=== PATIENT | female | born 1970 | race Caucasian/White ===

== ENCOUNTER 2022-02-01 08:23 | Day surgery (SDC) | payer OTHER ==
[2022-02-01] VITALS (9 sets, daily range): BP systolic 126–139; BP diastolic 73–81
[~2022-02-01] VITALS: Ht 177.8 cm; Wt 106.8 kg
[~2022-02-01 08:23] MED LIST: AMLO-139 PO; INDOCYANINE GREEN 25 MG/10 ML VIAL IV ONE; ceFAZolin inj. 2,000 MG in dextrose 5%-water 100 ML IV ONE; famotidine 20mg tablet PO ONE; ringers solution, lacted 1,000 ML IV SCH
[2022-02-01 09:40] LABS: BASOPHILS % (AUTO) 0.9 % (0-1); EOSINOPHILS # (AUTO) 0.1 X10'3 (0-0.9); EOSINOPHILS % (AUTO) 1.8 % (0-6); LYMPHOCYTES # (AUTO) 1.8 X10'3 (1.1-4.8); LYMPHOCYTES % (AUTO) 31.9 % (21-51); MEAN CORPUSCULAR HEMOGLOBIN 26.7 PG (27.0-31.0); MEAN CORPUSCULAR HGB CONC 33.5 g/dL (33.0-36.5); MEAN CORPUSCULAR VOLUME 79.8 FL (78-98); MEAN PLATELET VOLUME 8.9 FL (7.4-10.4); MONOCYTES # (AUTO) 0.5 X10'3 (0-0.9); MONOCYTES % (AUTO) 8.3 % (2-12); NEUTROPHILS # (AUTO) 3.2 X10'3 (1.8-7.7); NEUTROPHILS % (AUTO) 57.1 % (42-75); PRE OP HEMATOCRIT 34.1 % (35.0-45.0); PRE OP HEMOGLOBIN 11.4 g/dL (12.0-16.0); PRE OP PLATELET COUNT 302 X10'3 (140-440); RED BLOOD COUNT 4.28 X10'6 (4.20-5.60); RED CELL DISTRIBUTION WIDTH 17.3 % (11.5-14.5)
[2022-02-01 09:56] LABS: ALKALINE PHOSPHATASE 63 IU/L (46-116); BLOOD UREA NITROGEN 14 MG/DL (7-18); BUN/CREATININE RATIO 14.9 (6.6-38.0); CALCIUM 8.7 MG/DL (8.5-10.1); CHLORIDE 104 MMOL/L (99-107); CREATININE 0.94 MG/DL (0.40-0.90); PRE OP ALT 18 U/L (30-65); PRE OP ANION GAP 9 (8-16); PRE OP AST 18 U/L (10-37); PRE OP BILIRUB, TOTAL 0.3 MG/DL (0.0-1.0); PRE OP GLUCOSE 106 MG/DL (70-104); PRE OP POTASSIUM 3.4 MMOL/L (3.4-5.1); PRE OP SODIUM 139 MMOL/L (135-145); TOTAL CARBON DIOXIDE 25.7 MMOL/L (24-32); TOTAL PROTEIN 8.1 G/DL (6.4-8.2); eGFR 63 ML/MIN
[2022-02-01] MEDS ORDERED: fentaNYL/PF 50MCG/1 ML 2ML syringe ONE (10:52)
[2022-02-01] MEDS ORDERED: propofol inj 20 ML IV ONE (10:52)
[2022-02-01] MEDS ORDERED: rocuronium 10mg/ml inj IV ONE (10:52)
[2022-02-01] MEDS ORDERED: midazolam 1 mg/ML 2ml injection ONE (10:52)
[2022-02-01] MEDS ORDERED: BUPIVAcaine/PF 2.5 mg/ml (0.25%) 30ml vial ONE (10:58)
[2022-02-01] MEDS ORDERED: LIDOcaine 1% 30ml preserv. free vial ONE (10:58)
[2022-02-01] MEDS ORDERED: ondansetron/PF 4mg/2ml inj IV PRN (11:00)
[2022-02-01] MEDS ORDERED: meperidine/PF 25mg/ml syringe IV PRN ×2 (11:00)
[2022-02-01] MEDS ORDERED: morphine 4 MG/ML inj SYRINge IV PRN (11:00)
[2022-02-01] MEDS ORDERED: ringers solution, lacted 1,000 ML IV SCH (11:00)
[2022-02-01] MEDS ORDERED: proCHLORperazine 10 MG/2 ml inj IV PRN (11:00)
[2022-02-01] MEDS ORDERED: morphine 2 MG/ML inj. syringe IV PRN (11:00)
[2022-02-01] MEDS ORDERED: sevoflurane 250ml liquid IH ONE (11:06)
[2022-02-01] MEDS ORDERED: dexamethasone sod phosphate 4mg/ml inj. ONE (11:31)
[2022-02-01] MEDS ORDERED: ondansetron/PF 4mg/2ml inj ONE (12:24)
[2022-02-01] MEDS ORDERED: ePHEDrine 50MG/ML INJ. ONE (12:24)
[2022-02-01] MEDS ORDERED: glycopyrrolate 0.2mg/ml inj ONE (12:26)
[2022-02-01] MEDS ORDERED: neostigmine methylsulfate 1 MG/ML 10ml vial ONE (12:26)
[2022-02-01] MEDS ORDERED: oxyCODONE/APAP 5-325mg tablet PO PRN (12:40)
--- NOTE | 2022-02-01 12:45 | NUR ---
Received from OR via BED, accompanied by Anesthesiologist and report given by Anesthesiologist. PATIENT WAKING UP, NO S/S OF PAIN, V/S WNL, SCD ON, 20G TO RUE, ABDOMEN LAP SITE CLEAN W/ NO S/S OF COMPLICATIONS
[2022-02-01] MEDS: meperidine/PF 25mg/ml syringe IV PRN ×2 (13:07→13:22)
--- NOTE | 2022-02-01 13:55 | NUR ---
PATIENT A&OX4, DENIES PAIN, V/S WNL, SCD OFF, 20G TO RUE D/C, ABDOMEN LAP SITE CLEAN W/ NO S/S OF COMPLICATIONS.. I HAVE REVIEWED D/C INSTRUCTIONS WITH PATIENT and they have verbalized understanding patient d/c home with all belongings and family gave transport home.
== END 2022-02-01 13:55 | disposition home or self-care (01) ==
LOC: PAS 08:23
PROVIDERS: ATTEND Surgery
DX: K80.10 Calculus of gallbladder with chronic cholecystitis without obstruction (principal); I10 Essential (primary) hypertension; Z83.3 Family history of diabetes mellitus; Z82.49 Family history of ischemic heart disease and other diseases of the circulatory system; Z79.899 Other long term (current) drug therapy; Z98.890 Other specified postprocedural states
CPT/HCPCS: 36415; 47563; 80053; 82948; 85025; 87635; 93005; C9803; J0690; J1100; J2175; J2250; J2405; J2704; J2710; J3010; J3490; J7030; J7060; J7120; S2900; Z7506; Z7508; Z7512; A4215; A4618; A7000

== ENCOUNTER 2022-11-06 05:22 | Inpatient (IN) | payer OTHER ==
[2022-10-30 14:38] LABS: BASOPHILS % (AUTO) 0.6 % (0-1); EOSINOPHILS # (AUTO) 0.1 X10'3 (0-0.9); EOSINOPHILS % (AUTO) 1.7 % (0-6); LYMPHOCYTES # (AUTO) 2.1 X10'3 (1.1-4.8); LYMPHOCYTES % (AUTO) 31.7 % (21-51); MEAN CORPUSCULAR HEMOGLOBIN 29.3 PG (27.0-31.0); MEAN CORPUSCULAR HGB CONC 34.1 g/dL (33.0-36.5); MEAN CORPUSCULAR VOLUME 86.1 FL (78-98); MEAN PLATELET VOLUME 8.6 FL (7.4-10.4); MONOCYTES # (AUTO) 0.4 X10'3 (0-0.9); MONOCYTES % (AUTO) 6.1 % (2-12); NEUTROPHILS % (AUTO) 59.9 % (42-75); PRE OP HEMATOCRIT 38.5 % (35.0-45.0); PRE OP HEMOGLOBIN 13.1 g/dL (12.0-16.0); PRE OP PLATELET COUNT 289 X10'3 (140-440); RED BLOOD COUNT 4.48 X10'6 (4.20-5.60); RED CELL DISTRIBUTION WIDTH 14.2 % (11.5-14.5)
[2022-10-30 14:39] LABS: ALBUMIN 4.1 G/DL (3.4-5.0); ALBUMIN/GLOBULIN RATIO 1.2 (1.1-1.5); ALKALINE PHOSPHATASE 64 IU/L (46-116); BLOOD UREA NITROGEN 18 MG/DL (7-18); BUN/CREATININE RATIO 18.4 (10.0-20.0); CALCIUM 9.6 MG/DL (8.5-10.1); CHLORIDE 102 MMOL/L (99-107); CREATININE 0.98 MG/DL (0.40-0.90); PRE OP ALT 40 U/L (30-65); PRE OP ANION GAP 10 (8-16); PRE OP AST 27 U/L (10-37); PRE OP BILIRUB, TOTAL 0.4 MG/DL (0.0-1.0); PRE OP GLUCOSE 114 MG/DL (70-104); PRE OP POTASSIUM 3.6 MMOL/L (3.4-5.1); PRE OP SODIUM 139 MMOL/L (135-145); TOTAL CARBON DIOXIDE 27.5 MMOL/L (24-32); TOTAL PROTEIN 7.6 G/DL (6.4-8.2); eGFR 60 ML/MIN
[~2022-11-06] VITALS: Ht 177.8 cm; Wt 106.2 kg
[2022-11-06] VITALS (23 sets, daily range): BP systolic 107–153; BP diastolic 64–92
[~2022-11-06 05:22] MED LIST changes: -AMLO-139 PO; +AMLO10TA13 PO; -INDOCYANINE GREEN 25 MG/10 ML VIAL IV ONE; +PANT40TA54 PO; -ceFAZolin inj. 2,000 MG in dextrose 5%-water 100 ML IV ONE; -famotidine 20mg tablet PO ONE
[2022-11-06] MEDS ORDERED: gabapentin 300mg capsule PO ONE (05:30)
[2022-11-06] MEDS ORDERED: tranexamic acid inj. 1,000 MG in normal saline IV soln 100ML IV ONE (05:30)
[2022-11-06] MEDS ORDERED: cefazolin 2gm/D5W 100mL 100 ML IV ONE (05:30)
[2022-11-06] MEDS ORDERED: acetaminophen 325mg tablet PO ONE (05:30)
[2022-11-06] MEDS ORDERED: celeCOXIB 100mg capsule PO ONE (05:30)
[2022-11-06] MEDS ORDERED: oxyCODONE SR 10mg (sust. release) tab -2 tabs (20mg) PO ONE (05:30)
[2022-11-06] MEDS ORDERED: metoclopramide 5 mg/ml inj IV ONE (05:30)
[2022-11-06] MEDS ORDERED: vancomycin 1,500 MG in NS 300ml IV soln IV ONE (05:30)
[2022-11-06] MEDS ORDERED: famotidine 20mg tablet PO ONE (05:30)
[2022-11-06] MEDS ORDERED: vancomycin 1,000mg inj ONE (06:40)
[2022-11-06] MEDS ORDERED: epiNEPHrine 1 mg/ml inj ONE (06:40)
[2022-11-06] MEDS ORDERED: cloNIDine hcl/PF 100mcg/ml inj ONE ×2 (06:40→07:12)
[2022-11-06] MEDS ORDERED: ketorolac trometh. 30mg/ml inj. ONE (06:40)
[2022-11-06] MEDS ORDERED: ROPIVAcaine 0.5% (5mg/ml) 30ml vial ONE (06:41)
[2022-11-06] MEDS ORDERED: diphenhydrAMINE 25mg capsule PO PRN ×2 (06:55)
[2022-11-06] MEDS ORDERED: HYDROcodone/acetaminophen 10/325mg tab PO PRN (06:55)
[2022-11-06] MEDS ORDERED: acetaminophen 325mg tablet PO PRN (06:55)
[2022-11-06] MEDS ORDERED: bisacodyl 10mg suppository rectal RC PRN (06:55)
[2022-11-06] MEDS ORDERED: naloxone 0.4 mg/ml inj IV PRN (06:55)
[2022-11-06] MEDS ORDERED: HYDROmorphone inj. 0.5 MG/0.5 ML DISP.SYRIN IV PRN (06:55)
[2022-11-06] MEDS ORDERED: magnesium hydroxide 30ml (MOM) UD suspension PO PRN (06:55)
[2022-11-06] MEDS ORDERED: HYDROmorphone 1 mg/ml syringe IV PRN (06:55)
[2022-11-06] MEDS ORDERED: fentaNYL/PF 50MCG/1 ML 2ML syringe ONE (07:14)
[2022-11-06] MEDS ORDERED: MIDAZolam 1 MG/ML 5ML VIAL ONE (07:15)
[2022-11-06] MEDS ORDERED: ringers solution, lacted 1,000 ML IV SCH (07:45)
[2022-11-06] MEDS ORDERED: ondansetron/PF 4mg/2ml inj IV PRN (07:45)
[2022-11-06] MEDS ORDERED: ROPIVAcaine 0.2% (10 MG/5 ML) BOLUS INJECTION ADDCANAL PRN (07:45)
[2022-11-06] MEDS ORDERED: morphine 2 MG/ML inj. syringe IV PRN (07:45)
[2022-11-06] MEDS ORDERED: ROPIVAcaine 0.2%/PF PUMP/bolus 545 ML ADDCANAL SCH (07:45)
[2022-11-06] MEDS ORDERED: meperidine/PF 25mg/ml syringe IV PRN ×2 (07:45)
[2022-11-06] MEDS ORDERED: proCHLORperazine 10 MG/2 ml inj IV PRN (07:45)
[2022-11-06] MEDS ORDERED: propofol inj 20 ML IV ONE ×2 (08:17→08:53)
[2022-11-06] MEDS ORDERED: diphenhydrAMINE 50 mg/ml inj ONE (08:17)
[2022-11-06] MEDS ORDERED: dexamethasone sod phosphate 4mg/ml inj. ONE (08:17)
--- NOTE | 2022-11-06 08:51 | NUR ---
PEDAL PULSES PRESENT AND MARKED. PATIENT DID WATCH VIDEO. NO MUPIROCIN CREAM ORDEREED FOR THIS PATIENT. EDUCATED PT. ON INCENTIVE SPIROMETER
[2022-11-06] MEDS ORDERED: meperidine/PF 25mg/ml syringe ONE (09:22)
[2022-11-06] MEDS ORDERED: ipratropium/albuterol 3ml nebule NEB ONE (09:30)
--- NOTE | 2022-11-06 09:30 | NUR ---
Received from OR via HOSPITAL BED, accompanied by Anesthesiologist DR DUVALL and report given by Anesthesiologist. PT IS GROGGY BUT RESPONDS TO VERBAL STIMULI AND ANSWERERS QUESTIONS APPROPRIATELY. PT IS ABLE TO FRANCIS. PT PLACED ON BEDSIDE MONITOR, VSS. PT IS IN SR WITH RATE IN 80'S. PT IS ON RA WITH O2 SAT >93%. BREATHING TREATMENT HAS BEEN ORDERED AND AWAITING RT TO ARRIVE. PT HAS 20G PIV TO LEFT AC WITH LR INFUSING ORDERED. PT HAS MARILYN DRSG TO RT KNEE THAT IS ON AND CDI, KNEE WRAP IN PLACE WITH POWDER ICE PACK. PT HAS PALPABLE BILAT DORSALIS PEDIS PULSES. PT IS ABLE TO WIGGLE TOES AND HAS FULL SENSATION. PT DENIES PAIN AT THIS TIME. WILL CONTINUE TO ASSESS.
[2022-11-06] MEDS: meperidine/PF 25mg/ml syringe IV PRN ×2 (10:11→11:00)
[2022-11-06] MEDS: ondansetron/PF 4mg/2ml inj IV PRN ×3 (10:29→23:26)
[2022-11-06] MEDS: morphine 4 MG/ML inj SYRINge IV PRN ×2 (10:29→10:48)
[2022-11-06] MEDS: potassium cl 20mEq in 1/2 NS 1,000 ML IV SCH ×2 (11:00→19:00)
--- NOTE | 2022-11-06 11:32 | NUR ---
REPORT GIVEN AND ALL QUESTIONS ANSWERED. PATIENT TRANSFERRED TO ORTHO. LABELED BELONGINGS PRESENT AND DELIVERED TO ROOM. RN PRESENT ALL CRITERIA FOR TRANSFER BACK TO THE FLOOR HAS BEEN ACHIEVED. VSS. PAIN AT A TOLERABLE LEVEL. BED LOW, CALL LIGHT PRESENT AND 2 RAILS DOWN. WAQAR RN AWARE THAT PATIENT HAS ARRIVED TO ACCEPT CARE OF PATIENT.
[2022-11-06] MEDS ORDERED: tranexamic acid inj. 1,000 MG in normal saline 100ml IV soln 90 ML IV ONE (12:00)
--- NOTE | 2022-11-06 18:10 | NUR ---
Patient in room [facility]TH[facility] 4011. I have received report from ALEJANDRA Andino and had the opportunity to ask questions and assume patient care. Patient sitting up in bed eating dinner, family at bedside. No concerns at this time, I will continue to monitor.
[2022-11-06] MEDS: HYDROcodone/acetaminophen 10/325mg tab PO PRN (18:39)
[2022-11-06] MEDS ORDERED: VANCOMYCIN 1,500MG inj. 1,500 MG in normal saline 500ml IV soln 300 ML IV ONE (20:00)
[2022-11-06] MEDS: ascorbic acid 500mg tablet PO SCH (20:15)
[2022-11-06] MEDS: gabapentin 300mg capsule PO SCH (20:15)
[2022-11-06] MEDS ORDERED: sennosides 8.6mg tablet PO SCH (21:00)
[2022-11-07] MEDS: HYDROcodone/acetaminophen 10/325mg tab PO PRN ×2 (02:53→08:29)
[2022-11-07] MEDS: potassium cl 20mEq in 1/2 NS 1,000 ML IV SCH (03:00)
[2022-11-07] MEDS: ondansetron/PF 4mg/2ml inj IV PRN (06:05)
--- NOTE | 2022-11-07 06:25 | NUR ---
Problems reprioritized. Patient report given, questions answered & plan of care reviewed with ALEJANDRA Ferrara.
[2022-11-07 06:46] LABS: BASOPHILS % (AUTO) 0.4 % (0-1); EOSINOPHILS % (AUTO) 0.1 % (0-6); LYMPHOCYTES # (AUTO) 1.9 X10'3 (1.1-4.8); LYMPHOCYTES % (AUTO) 20.6 % (21-51); MEAN CORPUSCULAR HEMOGLOBIN 29.7 PG (27.0-31.0); MEAN CORPUSCULAR HGB CONC 34.5 g/dL (33.0-36.5); MEAN CORPUSCULAR VOLUME 86.1 FL (78-98); MEAN PLATELET VOLUME 8.8 FL (7.4-10.4); MONOCYTES # (AUTO) 0.8 X10'3 (0-0.9); MONOCYTES % (AUTO) 8.3 % (2-12); NEUTROPHILS # (AUTO) 6.5 X10'3 (1.8-7.7); NEUTROPHILS % (AUTO) 70.6 % (42-75); PLATELET COUNT 250 X10'3 (140-440); RED BLOOD COUNT 3.71 X10'6 (4.20-5.60); RED CELL DISTRIBUTION WIDTH 13.9 % (11.5-14.5); WHITE BLOOD COUNT 9.3 X10'3 (4.5-11.0)
[2022-11-07 06:47] LABS: ANION GAP 4 (8-16); CHLORIDE 102 MMOL/L (99-107); POTASSIUM 3.1 MMOL/L (3.5-5.1); SODIUM 137 MMOL/L (135-145); TOTAL CARBON DIOXIDE 30.9 MMOL/L (24-32)
[2022-11-07 07:00] VITALS: BP 161/93
[2022-11-07] MEDS ORDERED: amLODIPine 5mg tablet PO SCH (08:00)
[2022-11-07] MEDS ORDERED: pantoprazole 40mg Tablet.DR PO SCH (08:00)
[2022-11-07] MEDS ORDERED: multivitamins, therapeutics tablet PO SCH (08:00)
[2022-11-07] MEDS: gabapentin 300mg capsule PO SCH (08:30)
[2022-11-07] MEDS ORDERED: aspirin 325mg tablet PO SCH (08:30)
[2022-11-07] MEDS: ascorbic acid 500mg tablet PO SCH (08:30)
[2022-11-07 10:52] VITALS: BP 147/89
--- NOTE | 2022-11-07 10:58 | NUR ---
Joint surgery consult: Pt s/p R knee surgery this admit per EMR. Pt seen by SAM for written/verbal high protein diet ed w/ RD contact information provided. SAM encouraged pt to contact dietitian's office if nutrition questions/concerns. Addendum: 11/07/22 at [address] Amended: Links added.
--- NOTE | 2022-11-07 11:16 | NUR ---
Patient stable and appropriate for discharge home with family. IV removed. OnQ replaced and infusing @14. Dressing CDI. additional dressings and powder packs given to patient. All discharge instructions and education given and reviewed with patient, all questions answered. New RX given to patient preoperatively.
[2022-11-07] MEDS ORDERED: celeCOXIB 100mg capsule PO SCH (20:00)
== END 2022-11-07 11:20 | disposition home or self-care (01) | DRG 470 ==
LOC: PAS 05:22 → ORTHO 4S 07:02
PROVIDERS: ADMIT Orthopaedic Surgery; ATTEND Orthopaedic Surgery
PROC: 0SRC0J9 Replacement of Right Knee Joint with Synthetic Substitute, Cemented, Open Approach (ICD-10-PCS; principal; 2022-11-06 07:15)
DX: M17.11 Unilateral primary osteoarthritis, right knee (principal)
CPT/HCPCS: 36415; 71045; 73560; 80051; 80053; 82948; 85025; 86885; 86900; 86901; 87081; 93005; 94640; 97110; 97116; 97161; A4215; A4615; A7000; C1713; C1776; G0378; J0171; J0690; J0735; J1100; J1170; J1200; J1885; J2175; J2250; J2270; J2405; J2704; J2765; J2795; J3010; J3370; J3490; J7040; J7060; J7120